=== PATIENT | female | born 2005 | race Asian ===

== ENCOUNTER 2024-08-03 17:27 | Inpatient (IN) ==
[2024-08-03] MEDS: Prochlorperazine 5 mg/ml 2 ml VIAL (10 mg) IM ONE (18:55)
[2024-08-03] MEDS: Ondansetron ODT 4 mg TAB 4 MG TAB SL ONE (19:00)
[2024-08-03 19:03] LABS: ABS Basophils 0.1 10^3/uL (0.0-0.1); ABS Eosinophils 0.1 10^3/uL (0.0-0.5); ABS Lymphocytes 2.9 10^3/uL (1.0-4.8); ABS Monocytes 0.5 10^3/uL (0.0-0.9); Eosinophil % 0.5 %; Hematocrit 41.1 % (35-45); Hemoglobin 13.8 g/dL (11.5-14.3); Lymphocyte % 27.4 %; Mean Corpuscular Hemoglobin 30.2 pg (27-33); Mean Corpuscular Hgb Conc 33.5 g/dL (31-36); Mean Corpuscular Volume 90.1 fL (80-97); Mean Platelet Volume 6.9 fL (7.5-11.2); Platelet Count 506 10^3/uL (150-450); Red Blood Count 4.56 10^6/uL (3.63-4.92); Red Cell Distribution Width 13.6 % (12-17); White Blood Count 10.5 10^3/uL (3.8-11.8)
[2024-08-03] MEDS ORDERED: Lorazepam PYXIS KEY PRN (19:05)
[2024-08-03 19:34] LABS: ALT 9 U/L (7-52); AST 17 U/L (13-39); Acetaminophen < 15 mcg/mL; Albumin 4.7 g/dL (3.5-5.7); Albumin/Globulin Ratio 1.5 (1-3); Alcohol, S 225 mg/dL (<13); Alkaline Phosphatase 58 U/L (35-149); Anion Gap 11 mmol/L (2-16); Blood Urea Nitrogen 8 mg/dL (6-24); CO2 Carbon Dioxide 22 mmol/L (22-32); Calcium 9.4 mg/dL (8.6-10.3); Chloride 107 mmol/L (101-111); Globulin 3.1 g/dL (2-4); Glucose 91 mg/dL (70-100); Potassium 3.6 mmol/L (3.5-5.0); Salicylate < 2.50 mg/dL (<30); Sodium 140 mmol/L (135-145); Total Bilirubin 0.6 mg/dL (0.2-1.0); Total Protein 7.8 g/dL (6.4-8.9); eGFR CKD-EPI 126.9 (>60)
[2024-08-03 19:41] LABS: HCG Pregnancy < 0.60 mIU/mL
[2024-08-03 19:48] LABS: TSH Ultra Thyroid Stim Horm 0.72 mcIU/mL (0.34-5.60)
[2024-08-03] MEDS: LORazepam 2 mg VIAL 1 ml IV PUSH ONE (19:58)
[2024-08-04] MEDS ORDERED: Al Hydrox/Mg Hydrox/Simet LIQ 30 ML UDC PO PRN (01:19)
[2024-08-04] MEDS: Vitamin THERAPEUTIC TAB PO SCH (08:50)
[2024-08-04 09:32] VITALS: BP 120/85
== END 2024-08-05 08:08 | disposition home or self-care (01) | DRG 753 ==
LOC: ED 17:27 → EDHOLD 08-04 01:19 → BSU 08-04 02:10
PROVIDERS: ADMIT Psychiatry & Neurology Psychiatry; ATTEND Student in an Organized Health Care Education/Training Program